=== PATIENT | female | born 1940 | race Caucasian/White ===

== ENCOUNTER 2021-06-15 08:52 | Outpatient (CLI) | payer BC, OTHER | END 2021-06-15 23:59 | disposition home or self-care (01) | LOC: LAB 08:52 | PROVIDERS: ATTEND Internal Medicine | DX: Z02.9 Encounter for administrative examinations, unspecified (principal) ==

== ENCOUNTER 2021-07-02 11:30 | Emergency (ER) | payer BC ==
[~2021-07-02] VITALS: Ht 170.2 cm; Wt 59.9 kg
--- NOTE | 2021-07-02 11:45 | NUR ---
assumed care of pt. pt to BR to attempt urine sample
--- NOTE | 2021-07-02 11:55 | NUR ---
pt reports pain to the R low back x5 days. denies urinary sx. denies any recent injury or heavy lifting. pt states "I think it is my kidney" but has no hx of kidney problems no other c/o at this time. no apparent distress SO at bedside. awaiting MD to see
--- NOTE | 2021-07-02 12:03 | NUR ---
Dr Urias at bedside for eval
[2021-07-02 12:28] LABS: MICROSCOPIC NOT IND
[2021-07-02 12:35] LABS: BASOPHILS % (AUTO) 1 % (0-1); EOSINOPHILS % (AUTO) 0 % (1-7); LYMPHOCYTES % (AUTO) 18 % (22-44); MEAN CORPUSCULAR HEMOGLOBIN 32.8 pg (27.0-34.8); MEAN CORPUSCULAR HGB CONC 34.2 g/dL (32.4-35.8); MEAN PLATELET VOLUME 7.2 fL (7.4-10.4); MONOCYTES % (AUTO) 5 % (2-9); NEUTROPHILS % (AUTO) 76 % (42-75); PLATELET COUNT 299 x10^3/uL (130-400); RED BLOOD COUNT 4.45 x10^6/uL (3.82-5.3); RED CELL DISTRIBUTION WIDTH 12.3 % (9.6-15.2)
[2021-07-02 12:43] LABS: ALANINE AMINOTRANSFERASE 28 U/L (12-78); ALBUMIN 3.6 g/dL (3.4-5.0); ANION GAP 8 mmol/L (5-15); CALCIUM 8.9 mg/dL (8.5-10.1); CHLORIDE 98 mmol/L (98-107); CREATININE 0.69 mg/dL (0.55-1.02)
[2021-07-02 12:45] LABS: ALKALINE PHOSPHATASE 118 U/L (45-117); BILIRUBIN,TOTAL 0.6 mg/dL (0.2-1.0)
--- NOTE | 2021-07-02 13:21 | NUR ---
chart up for MD recheck
[2021-07-02 14:45] VITALS: BP 137/89
== END 2021-07-02 14:48 | disposition home or self-care (01) ==
LOC: ED 14:25
DX: M51.36 Other intervertebral disc degeneration, lumbar region (principal); I10 Essential (primary) hypertension; E87.1 Hypo-osmolality and hyponatremia
CPT/HCPCS: 36415; 72110; 72220; 80053; 81003; 85025; 99284